=== PATIENT | female | born 1965 | race Caucasian/White ===

== ENCOUNTER 2019-07-16 13:54 | Inpatient (IN) | payer MEDICAID ==
[~2019-07-16] VITALS: Ht 157.5 cm; Wt 82.0 kg
[2019-07-16 14:09] VITALS: Ht 157.5 cm; Wt 82.0 kg
[2019-07-16 14:55] LABS: PLATELET COUNT 173 x10^3mcL (130-400); RED CELL DISTRIBUTION WIDTH 13.5 % (11.5-14.5)
[2019-07-16 15:00] LABS: BASOPHIL % 0 % (0-2)
[2019-07-16 15:15] LABS: BILIRUBIN TOTAL 0.89 mg/dL (0.20-1.00); CALCIUM 8.9 mg/dL (8.5-10.1); CARBON DIOXIDE 18.3 mmol/L (21-32); CREATININE SERUM 1.1 mg/dL (0.6-1.0); TOTAL PROTEIN, SERUM 8.2 g/dL (6.4-8.2)
[2019-07-16 15:16] LABS: ALBUMIN 2.5 g/dL (3.4-5.0)
[2019-07-16 18:25] VITALS: BP 142/80
[2019-07-16 18:25] LABS: UA SPECIFIC GRAVITY <=1.005 (1.005-1.035); microscopic required? YES; urine erythrocyte 2+ (NEGATIVE)
[2019-07-16 18:35] LABS: AMPHETAMINE QUAL UR NONE DETECTED (See below)
[2019-07-16 19:21] VITALS: BP 133/74
[2019-07-16 20:12] LABS: CHLORIDE SERUM 103 mmol/L (98-107); CREATININE SERUM 0.8 mg/dL (0.6-1.0); GFR1 > 60 mL/min; GLUCOSE SERUM 264 mg/dL (74-106); MAGNESIUM 1.9 mg/dL (1.8-2.4); SODIUM SERUM 134 mmol/L (136-145)
[2019-07-16 20:25] LABS: POTASSIUM SERUM 2.5 mmol/L (3.5-5.1)
[2019-07-16 20:26] LABS: PHOSPHOROUS 0.7 mg/dL (2.5-4.9)
[2019-07-16 23:20] VITALS: BP 126/76
[2019-07-17 00:23] LABS: CALCIUM 7.9 mg/dL (8.5-10.1); CHLORIDE SERUM 104 mmol/L (98-107); CREATININE SERUM 0.8 mg/dL (0.6-1.0); GFR1 > 60 mL/min; GLUCOSE SERUM 221 mg/dL (74-106); MAGNESIUM 1.7 mg/dL (1.8-2.4); PHOSPHOROUS 1.2 mg/dL (2.5-4.9); POTASSIUM SERUM 3.1 mmol/L (3.5-5.1); SODIUM SERUM 133 mmol/L (136-145)
[2019-07-17 04:23] VITALS: BP 109/57
[2019-07-17 04:36] LABS: CALCIUM 7.9 mg/dL (8.5-10.1); CARBON DIOXIDE 19.7 mmol/L (21-32); CHLORIDE SERUM 107 mmol/L (98-107); CREATININE SERUM 0.7 mg/dL (0.6-1.0); GFR1 > 60 mL/min; GLUCOSE SERUM 184 mg/dL (74-106); MAGNESIUM 1.9 mg/dL (1.8-2.4); PHOSPHOROUS 1.6 mg/dL (2.5-4.9); POTASSIUM SERUM 3.1 mmol/L (3.5-5.1); SODIUM SERUM 137 mmol/L (136-145)
[2019-07-17 04:39] LABS: BASOPHIL % 0.3 % (0-2); PLATELET COUNT 166 x10^3mcL (130-400); RED CELL DISTRIBUTION WIDTH 13.4 % (11.5-14.5)
[2019-07-17 07:56] VITALS: BP 123/75
[2019-07-17 11:15] VITALS: BP 133/80
[2019-07-17 17:11] LABS: CARBON DIOXIDE 19.5 mmol/L (21-32); CHLORIDE SERUM 104 mmol/L (98-107); CREATININE SERUM 0.7 mg/dL (0.6-1.0); GFR1 > 60 mL/min; GLUCOSE SERUM 219 mg/dL (74-106); POTASSIUM SERUM 3.2 mmol/L (3.5-5.1); SODIUM SERUM 135 mmol/L (136-145)
[2019-07-17 17:40] VITALS: BP 120/69
[2019-07-17 21:00] VITALS: BP 100/62
[2019-07-18 04:31] VITALS: BP 120/76
[2019-07-18 06:57] LABS: CALCIUM 7.6 mg/dL (8.5-10.1); CARBON DIOXIDE 23.1 mmol/L (21-32); CHLORIDE SERUM 107 mmol/L (98-107); CREATININE SERUM 0.6 mg/dL (0.6-1.0); GFR1 > 60 mL/min; GLUCOSE SERUM 157 mg/dL (74-106); MAGNESIUM 1.8 mg/dL (1.8-2.4); PHOSPHOROUS 1.5 mg/dL (2.5-4.9); POTASSIUM SERUM 3.1 mmol/L (3.5-5.1); SODIUM SERUM 138 mmol/L (136-145)
[2019-07-18 07:14] LABS: BASOPHIL % 0.3 % (0-2); PLATELET COUNT 161 x10^3mcL (130-400); RED CELL DISTRIBUTION WIDTH 13.9 % (11.5-14.5)
[2019-07-18 09:00] VITALS: BP 113/63
[2019-07-18 14:06] VITALS: BP 135/79
[2019-07-18 17:00] VITALS: BP 126/87
[2019-07-18 20:31] VITALS: BP 124/78
[2019-07-19 04:32] VITALS: BP 128/66
[2019-07-19 06:16] LABS: BASOPHIL % 0.2 % (0-2); PLATELET COUNT 183 x10^3mcL (130-400); RED CELL DISTRIBUTION WIDTH 14.1 % (11.5-14.5)
[2019-07-19 06:50] LABS: CALCIUM 7.7 mg/dL (8.5-10.1); CARBON DIOXIDE 25.2 mmol/L (21-32); CHLORIDE SERUM 107 mmol/L (98-107); CREATININE SERUM 0.6 mg/dL (0.6-1.0); GFR1 > 60 mL/min; GLUCOSE SERUM 166 mg/dL (74-106); MAGNESIUM 1.8 mg/dL (1.8-2.4); PHOSPHOROUS 3.2 mg/dL (2.5-4.9); SODIUM SERUM 142 mmol/L (136-145)
[2019-07-19 07:10] LABS: POTASSIUM SERUM 2.8 mmol/L (3.5-5.1)
[2019-07-19] MEDS ORDERED: LEVAQUIN750 MG PO (08:21)
[2019-07-19 08:22] VITALS: BP 110/73
[2019-07-19] MEDS ORDERED: IMITREX50 MG PO (08:22)
[2019-07-19] MEDS ORDERED: LANTUS SOLOS100 U/M1 SQ (08:22)
[2019-07-19 10:54] VITALS: BP 110/73
[2019-07-21] MEDS ORDERED: IBUPROFEN400 MG PO (15:54)
== END 2019-07-19 11:36 | disposition home or self-care (01) | DRG 420 ==
LOC: ED 13:54 → DU 15:59 → IC 15:59 → DU 07-17 11:20
PROVIDERS: Emergency Medicine; ADMIT Family Medicine
DX: E11.10 Type 2 diabetes mellitus with ketoacidosis without coma (principal); E43 Unspecified severe protein-calorie malnutrition; B37.0 Candidal stomatitis; E87.8 Other disorders of electrolyte and fluid balance, not elsewhere classified; E83.39 Other disorders of phosphorus metabolism; E87.1 Hypo-osmolality and hyponatremia; E87.6 Hypokalemia; G43.909 Migraine, unspecified, not intractable, without status migrainosus; M06.9 Rheumatoid arthritis, unspecified; Z79.4 Long term (current) use of insulin; Z68.28 Body mass index [BMI] 28.0-28.9, adult
CPT/HCPCS: 82962; 83880; G0378; J1815; J1956; J2405; J3490; J7030; Q0092